=== PATIENT | female | born 2000 | race African-American/Black ===

== ENCOUNTER 2020-07-28 02:30 | Outpatient (CLI) | payer MEDICAID ==
[2020-07-28 02:49] VITALS: BP 117/69
[2020-07-28] MEDS ORDERED: LACTATED RINGERS 1,000 ML IV ONE (03:01)
--- NOTE | 2020-07-28 06:20 | Ultrasound Report ---
Obstetrical ultrasound limited with biophysical profile. HISTORY: Evaluate for abruption. . Pain. Limited obstetrical ultrasound was performed. A single viable intrauterine in the cephalic position has heart tones of 141 bpm. Amniotic fluid index is normal at 10.8 cm. Placenta is anteriorly located and demonstrates no evidence of abruption. Biophysical profile is normal at 8/8. FINDINGS: 1. Normal biophysical profile. 2. No evidence of abruption. Signer Name: Jose Johnson MD Signed: 07/28/2020 6:16 AM Workstation Name: [id number]
== END 2020-07-28 07:40 | disposition home or self-care (01) ==
LOC: TRG 02:30 → APU 02:38 → TRG 07:40
PROVIDERS: ATTEND Obstetrics & Gynecology
DX: O46.8X3 Other antepartum hemorrhage, third trimester (principal); Z3A.34 34 weeks gestation of pregnancy
CPT/HCPCS: 59025; 76815; 76819; 96360; J7120

== ENCOUNTER 2020-08-16 16:38 | Outpatient (CLI) | payer MEDICAID ==
[2020-08-16 17:49] LABS: Hematocrit 29.8 % (30.3-42.9); Hemoglobin 9.8 gm/dl (10.1-14.3); Mean Corpuscular HGB Conc 33 % (30-34); Mean Corpuscular Volume 83 fl (79-97); Platelet Count 228 K/mm3 (140-440); Red Blood Count 3.61 M/mm3 (3.65-5.03)
[2020-08-16 17:54] LABS: Amphetamine Screen,Urine Negative; Benzodiazepines Screen,Urine Negative; Cannabinoid Screen,Urine Negative; Cocaine Screen,Urine Negative; Methadone Screen,Urine Negative; Opiate Screen,Urine Negative
[2020-08-16 17:59] LABS: Bacteria,Urine 1+ /HPF (Negative); Bilirubin,Urine NEG (Negative); Blood,Urine NEG (Negative); Color,Urine Yellow (Yellow); Mucus,Urine FEW /HPF; Protein,Urine <15 mg/dL mg/dL (Negative); RBC,Urine < 1.0 /HPF (0.0-6.0); Urobilinogen,Urine < 2.0 mg/dL (<2.0)
[2020-08-16 18:07] LABS: Alanine Aminotransferase 8 units/L (7-56); Uric Acid 4.6 mg/dL (3.5-7.6)
--- NOTE | 2020-08-16 18:18 | Event Note ---
Date: 08/16/20 (pt presents with c/o edema LE and a home BP 120/100) All BPs normotensive 114/70 She does have 1+ edema LE bilateral Recommended decrease salt, increase water hydration, support socks. Pt has an OB appt Monday with Gia WEIGHT CHECKER in the [facility] office. All questions addressed. Pt encouraged to CB with any concerns.
[2020-08-16 18:21] VITALS: BP 111/74
== END 2020-08-16 18:30 | disposition home or self-care (01) ==
LOC: TRG 16:38 → APU 16:38 → TRG 18:30
PROVIDERS: ATTEND Obstetrics & Gynecology
DX: O47.1 False labor at or after 37 completed weeks of gestation (principal); Z3A.39 39 weeks gestation of pregnancy
CPT/HCPCS: 36415; 59025; 80307; 81001; 82565; 83615; 84450; 84460; 84550; 85027

== ENCOUNTER 2020-08-26 17:41 | Inpatient (IN) | payer MEDICAID ==
[2020-08-26] MEDS ORDERED: LIDOCAINE (2%) 20 MG/1 ML VIAL 20 ML MDV INFILTRATI ONE (19:28)
[2020-08-26] MEDS ORDERED: ONDANSETRON 4 MG/2 ML INJ IV PRN (19:28)
[2020-08-26] MEDS ORDERED: TERBUTALINE 1 MG/1 ML INJ SUB-Q PRN (19:28)
[2020-08-26] MEDS ORDERED: ePHEDrine SULFATE 50 MG/1 ML INJ IV PRN (19:28)
[2020-08-26] MEDS ORDERED: MINERAL OIL 30 ML ORAL LIQD PO PRN (19:28)
[2020-08-26] MEDS ORDERED: ACETAMINOPHEN 325 MG TAB PO PRN (19:28)
--- NOTE | 2020-08-26 19:28 | History and Physical Report ---
History of Present Illness Date of examination: 08/26/20 Date of admission: 08/26/2020 Chief complaint: decreased movement, passed my mucus plug, contractions History of present illness: Pt presents c/o decreased movement and contraction. Sono noted to have BABATUNDE of 4.7. Will admit for IOL due to oligohydraminos. Serial IOL was d/w and all questions were addressed and answered. EDC Calculations LMP: 09/02/2020 EDC Confirmation: 09/02/2020 Gestational Age: 30 2/7 weeks Past History : 1 Term Births: 0 Premature Births: 0 Living Children: 0 Para: 0 Mult. Births: 0 Prev : 0 Aborta: 0 Elect. Ab: 0 Spont. Ab: 0 Ectopics: 0 Past Medical History: Negative Past Medical History Past Surgical History: Negative Past Surgical History Family History Summary: Other Family Member - Has No Family History of Ovarvian Cancer - Entered On: 06/26/2020 Other Family Member - Has No Family History of Breast Cancer - Entered On: 06/26/2020 Other Family Member - Has Family History of Spontaneous DVT-PE - Entered On: 06/26/2020 Other Family Member - Has Family History of Diabetes - Entered On: 06/26/2020 Other Family Member - Has Family History of Coronary Heart Disease - Entered On: 06/26/2020 Social History: Marital Status: Single Children: 0 Occupation: Smoking History: Patient has never smoked. Risk Factors: Smoked Tobacco Use: Former smoker Smokeless Tobacco Use: Never Counseled to quit/cut down: yes Passive smoke exposure: no Drug use: no HIV high-risk behavior: no Caffeine use: 1 drinks per day Alcohol use: no Exercise: yes Times per week: 4 Seatbelt use: 100 % Past Medical History Surgery (Non-clinical physician assistant): Negative Past Surgical History Abnormal PAP: negative Uterine Anomaly: negative Social Hx: Marital Status: Single Children: 0 Occupation: Smoking History: Patient has never smoked. Infection History Hx of STD: gonorrhea HIV Risk Eval: no Partner hx. of genital herpes: no Infection History Comments: chlamydia Genetic History Congenital Heart Defect: Mom: no Dad: no Lorena Disease: Mom: no Dad: no Thalassemia Mom: no Dad: no Neural Tube Defect Mom: no Dad: no Down's Syndrome Mom: no Dad: no Carlos-Sachs Mom: no Dad: no Sickle Cell Disease/Trait Mom: no Dad: no Hemophilia Mom: no Dad: no Muscular Dystrophy Mom: no Dad: no Cystic Fibrosis Mom: no Dad: no Agnes Chorea Mom: no Dad: no Mental Retardation Mom: no Dad: no Fragile X Mom: no Dad: no Other Genetic/Chromosomal Disorder Mom: no Dad: no Child w/other defect Mom: no Dad: no Enviromental Exposures Xray Exposure: no Medication, drug, or alcohol use since LMP: no Exposure to Cat Liter: yes Active Medications: None Current Allergies (reviewed today): No known allergies Past History Past Medical History: other (see hpi) Past Surgical History: other (see hpi) [employer] MANAGER History: other (see hpi) Family/Genetic History: other (see hpi) Social history: other (see hpi) - Obstetrical History Expected Date of Delivery: 09/02/20 Actual Gestation: 39 Week(s) 0 Day(s) : 1 Medications and Allergies Allergies Allergy/AdvReac Type Severity Reaction Status Date / Time No Known Allergies Allergy Verified 08/26/20 18:41 Home Medications Medication Instructions Recorded Confirmed Last Taken Type 147/Iron/Folic Acid 1 mg PO DAILY 08/16/20 08/26/20 08/26/20 History Review of Systems All systems: negative - Vital Signs Vital signs: Vital Signs Pulse BP 74 122/81 08/26/20 18:08 08/26/20 18:08 Temp Pulse Resp BP Pulse Ox 98.2 F 77 18 124/74 98 08/26/20 18:35 08/26/20 19:20 08/26/20 18:35 08/26/20 19:09 08/26/20 19:20 - Physical Exam Cardiovascular: Normal S1, Normal S2 Lungs: Positive: Normal air movement Abdomen: Positive: normal appearance, soft Genitourinary (Female): Positive: other (as per triage nurse exam provider did not re-examine pt) - Obstetrical FHR: category 1 Uterine Contraction Pattern: Irregular Uterine Tone Measurement Phase: Resting Results Result Diagrams: 08/26/20 19:40 All other labs normal. Assessment and Plan - Patient Problems (1) 39 weeks gestation of Current Visit: Yes Status: Acute (2) Oligohydramnios antepartum Current Visit: Yes Status: Acute Qualifiers: Fetus number: single or unspecified fetus Qualified Code(s): O41.00X0 - Oligohydramnios, unspecified trimester, not applicable or unspecified Plan to address problem: -admit for IOL -serial IOL and expectations d/w pt and family member at bedside -all questions were addressed and answered.
--- NOTE | 2020-08-26 19:44 | Ultrasound Report ---
Limited OB Ultrasound Biophysical profile HISTORY: decreased movment. TECHNIQUE: Grayscale and color imaging performed. COMPARISON: Limited OB ultrasound and biophysical profile from 07/28/2020 FINDINGS: There is a single viable intrauterine gestation with cephalic presentation and heart rate o f 139 bpm. BABATUNDE is low measuring 4.7 cm. On biophysical profile, the fetus received a score of 2 out of 2 for breathing, movement, posture/ton e, and qualitative BABATUNDE. Total score was 8 out of 8. IMPRESSION: 1. Single viable intrauterine gestation with low BABATUNDE. 2. Normal biophysical profile. Signer Name: Charles Cisneros MD Signed: 08/26/2020 7:39 PM Workstation Name: [id number]
[2020-08-26] MEDS ORDERED: OXYTOCIN DRIP 30 UNITS/500 ML BAG IV SCH ×2 (20:00)
[2020-08-26 20:12] LABS: Hematocrit 30.8 % (30.3-42.9); Mean Corpuscular HGB Conc 32 % (30-34); Mean Corpuscular Volume 82 fl (79-97); Platelet Count 222 K/mm3 (140-440); Red Blood Count 3.76 M/mm3 (3.65-5.03); Red Cell Distribution Width 15.7 % (13.2-15.2)
[2020-08-26] MEDS ORDERED: DINOPROSTONE 10 MG VAG SUPP VG ONE (21:28)
--- NOTE | 2020-08-27 03:05 | Event Note ---
Date: 08/27/20 Tracing reviewed. Cat 1 pt stable. Cont cervidil for now.
--- NOTE | 2020-08-27 06:39 | Progress Note ---
Assessment and Plan - Patient Problems (1) Oligohydramnios antepartum Onset Date: ~08/26/20 Current Visit: Yes Status: Acute Qualifiers: Fetus number: single or unspecified fetus Qualified Code(s): O41.00X0 - Oligohydramnios, unspecified trimester, not applicable or unspecified Plan to address problem: Pt in good spirits No c/o voiced Cervidil due out @ 1200 AM carre and diet ordered. Pt aware of POC and poss of more than one day for induction Subjective - Subjective Date of service: 08/27/20 (no c/o voiced) Principal diagnosis: IUP@39w1d oligo for IOL Patient reports: movement normal Objective - Vital Signs Vital Signs: Vital Signs - 12hr 08/26/20 08/26/20 08/26/20 18:39 18:40 18:45 Temperature Pulse Rate 68 69 73 Respiratory Rate Blood Pressure 130/86 129/87 Blood Pressure [Left] O2 Sat by Pulse 99 99 Oximetry 08/26/20 08/26/20 08/26/20 18:50 18:55 19:00 Temperature Pulse Rate 81 72 73 Respiratory Rate Blood Pressure Blood Pressure [Left] O2 Sat by Pulse 99 100 99 Oximetry 08/26/20 08/26/20 08/26/20 19:05 19:09 19:10 Temperature Pulse Rate 84 76 74 Respiratory Rate Blood Pressure 124/74 Blood Pressure [Left] O2 Sat by Pulse 98 99 Oximetry 08/26/20 08/26/20 08/26/20 19:15 19:20 19:25 Temperature Pulse Rate 73 77 78 Respiratory Rate Blood Pressure Blood Pressure [Left] O2 Sat by Pulse 99 98 99 Oximetry 08/26/20 08/26/20 08/26/20 19:30 19:35 19:38 Temperature Pulse Rate 71 84 78 Respiratory Rate Blood Pressure 131/93 Blood Pressure [Left] O2 Sat by Pulse 99 99 Oximetry 08/26/20 08/26/20 08/26/20 19:40 19:44 19:45 Temperature Pulse Rate 79 126 H 120 H Respiratory Rate Blood Pressure Blood Pressure [Left] O2 Sat by Pulse 99 92 99 Oximetry 08/26/20 08/26/20 08/26/20 19:50 19:55 20:00 Temperature Pulse Rate 94 H 79 89 Respiratory Rate Blood Pressure Blood Pressure [Left] O2 Sat by Pulse 99 99 99 Oximetry 08/26/20 08/26/20 08/26/20 20:05 20:08 20:45 Temperature 99.0 F Pulse Rate 79 78 83 Respiratory 18 Rate Blood Pressure 125/89 Blood Pressure 127/79 [Left] O2 Sat by Pulse 99 Oximetry 08/26/20 08/26/20 08/26/20 20:47 22:02 23:02 Temperature Pulse Rate 83 90 120 H Respiratory Rate Blood Pressure 127/79 133/87 134/86 Blood Pressure [Left] O2 Sat by Pulse Oximetry 08/27/20 08/27/20 08/27/20 00:03 01:02 02:02 Temperature Pulse Rate 69 76 71 Respiratory Rate Blood Pressure 113/69 124/84 106/55 Blood Pressure [Left] O2 Sat by Pulse Oximetry 08/27/20 08/27/20 08/27/20 03:02 03:12 03:17 Temperature Pulse Rate 71 90 94 H Respiratory Rate Blood Pressure 121/76 Blood Pressure [Left] O2 Sat by Pulse 99 99 Oximetry 08/27/20 08/27/20 08/27/20 03:22 03:27 03:32 Temperature Pulse Rate 84 75 75 Respiratory Rate Blood Pressure Blood Pressure [Left] O2 Sat by Pulse 98 98 98 Oximetry 08/27/20 08/27/20 08/27/20 03:37 03:42 03:47 Temperature Pulse Rate 87 84 83 Respiratory Rate Blood Pressure Blood Pressure [Left] O2 Sat by Pulse 98 98 98 Oximetry 08/27/20 08/27/20 08/27/20 03:52 03:57 04:02 Temperature Pulse Rate 87 83 86 Respiratory Rate Blood Pressure 146/91 Blood Pressure [Left] O2 Sat by Pulse 98 98 99 Oximetry 08/27/20 08/27/20 08/27/20 04:07 04:12 04:17 Temperature Pulse Rate 77 86 103 H Respiratory Rate Blood Pressure Blood Pressure [Left] O2 Sat by Pulse 98 98 97 Oximetry 08/27/20 08/27/20 08/27/20 04:22 04:27 04:32 Temperature Pulse Rate 72 72 71 Respiratory Rate Blood Pressure Blood Pressure [Left] O2 Sat by Pulse 97 98 98 Oximetry 08/27/20 08/27/20 08/27/20 04:37 04:42 04:47 Temperature Pulse Rate 69 72 69 Respiratory Rate Blood Pressure Blood Pressure [Left] O2 Sat by Pulse 98 98 98 Oximetry 08/27/20 08/27/20 08/27/20 04:52 04:57 05:02 Temperature Pulse Rate 69 73 72 Respiratory Rate Blood Pressure 134/82 Blood Pressure [Left] O2 Sat by Pulse 98 98 98 Oximetry 08/27/20 08/27/20 08/27/20 05:07 05:12 05:17 Temperature Pulse Rate 76 79 74 Respiratory Rate Blood Pressure Blood Pressure [Left] O2 Sat by Pulse 98 98 97 Oximetry 08/27/20 08/27/20 08/27/20 05:22 05:27 05:32 Temperature Pulse Rate 74 66 73 Respiratory Rate Blood Pressure Blood Pressure [Left] O2 Sat by Pulse 97 98 97 Oximetry 08/27/20 08/27/20 08/27/20 05:37 05:42 05:47 Temperature Pulse Rate 70 90 74 Respiratory Rate Blood Pressure Blood Pressure [Left] O2 Sat by Pulse 98 98 98 Oximetry 08/27/20 08/27/20 08/27/20 05:52 05:57 06:02 Temperature Pulse Rate 71 74 95 H Respiratory Rate Blood Pressure Blood Pressure [Left] O2 Sat by Pulse 98 98 99 Oximetry 08/27/20 08/27/20 08/27/20 06:04 06:07 06:12 Temperature Pulse Rate 71 69 73 Respiratory Rate Blood Pressure 136/83 Blood Pressure [Left] O2 Sat by Pulse 98 97 Oximetry 08/27/20 08/27/20 08/27/20 06:17 06:22 06:27 Temperature Pulse Rate 73 72 72 Respiratory Rate Blood Pressure Blood Pressure [Left] O2 Sat by Pulse 97 97 97 Oximetry 08/27/20 06:32 Temperature Pulse Rate 73 Respiratory Rate Blood Pressure Blood Pressure [Left] O2 Sat by Pulse 97 Oximetry - Exam Breasts: deferred Cardiovascular: Regular rate Lungs: Normal air movement Abdomen: Present: normal appearance, soft, normal bowel sounds. Absent: distention, tenderness Uterus: Present: normal FHR: auscultation normal, category 1 (minimal variability) Uterine Contraction Monitor Mode: External Uterine Contraction Pattern: Irregular Uterine Tone Measurement Phase: Resting Uterine Contraction Intensity: Mild Extremities: normal Deep Tendon Reflex Grade: Normal +2 - Labs Labs: Abnormal Labs 08/26/20 19:40 WBC 11.7 H Hgb 10.0 L MCH 27 L RDW 15.7 H Laboratory Results - last 24 hr 08/26/20 08/26/20 08/26/20 19:40 19:40 19:40 WBC 11.7 H RBC 3.76 Hgb 10.0 L Hct 30.8 MCV 82 MCH 27 L MCHC 32 RDW 15.7 H Plt Count 222 Syphilis IgG Antibody Nonreactive Blood Type O POSITIVE Antibody Screen Negative
[2020-08-27] MEDS: LACTATED RINGERS 1,000 ML IV SCH ×2 (08:16)
--- NOTE | 2020-08-27 12:10 | Event Note ---
Date: 08/27/20 SVE /1 Cervidil removed patient tolerated well. Patient to eat and shower will start pit afterward 4x4 every 30 min. Anticipate vaginal delivery UMAYCOL Blake
--- NOTE | 2020-08-27 16:35 | Progress Note ---
Assessment and Plan SVE /-1 Pitocin at 4 SROM Clear, Patient desires epidural, bolus going anticipate vaginal delivery - Patient Problems (1) Oligohydramnios antepartum Onset Date: ~08/26/20 Current Visit: Yes Status: Acute Qualifiers: Fetus number: single or unspecified fetus Qualified Code(s): O41.00X0 - Oligohydramnios, unspecified trimester, not applicable or unspecified Subjective - Subjective Date of service: 08/27/20 Principal diagnosis: IUP@39w1d oligo for IOL Patient reports: loss of fluid, movement normal, contractions Objective - Vital Signs Vital Signs: Vital Signs - 12hr 08/27/20 08/27/20 08/27/20 04:32 04:37 04:42 Temperature Pulse Rate 71 69 72 Respiratory Rate Blood Pressure Blood Pressure [Left] O2 Sat by Pulse 98 98 98 Oximetry 08/27/20 08/27/20 08/27/20 04:47 04:52 04:57 Temperature Pulse Rate 69 69 73 Respiratory Rate Blood Pressure Blood Pressure [Left] O2 Sat by Pulse 98 98 98 Oximetry 08/27/20 08/27/20 08/27/20 05:02 05:07 05:12 Temperature Pulse Rate 72 76 79 Respiratory Rate Blood Pressure 134/82 Blood Pressure [Left] O2 Sat by Pulse 98 98 98 Oximetry 08/27/20 08/27/20 08/27/20 05:17 05:22 05:27 Temperature Pulse Rate 74 74 66 Respiratory Rate Blood Pressure Blood Pressure [Left] O2 Sat by Pulse 97 97 98 Oximetry 08/27/20 08/27/20 08/27/20 05:32 05:37 05:42 Temperature Pulse Rate 73 70 90 Respiratory Rate Blood Pressure Blood Pressure [Left] O2 Sat by Pulse 97 98 98 Oximetry 08/27/20 08/27/20 08/27/20 05:47 05:52 05:57 Temperature Pulse Rate 74 71 74 Respiratory Rate Blood Pressure Blood Pressure [Left] O2 Sat by Pulse 98 98 98 Oximetry 08/27/20 08/27/20 08/27/20 06:02 06:04 06:07 Temperature Pulse Rate 95 H 71 69 Respiratory Rate Blood Pressure 136/83 Blood Pressure [Left] O2 Sat by Pulse 99 98 Oximetry 08/27/20 08/27/20 08/27/20 06:12 06:17 06:22 Temperature Pulse Rate 73 73 72 Respiratory Rate Blood Pressure Blood Pressure [Left] O2 Sat by Pulse 97 97 97 Oximetry 08/27/20 08/27/20 08/27/20 06:27 06:32 06:37 Temperature Pulse Rate 72 73 74 Respiratory Rate Blood Pressure Blood Pressure [Left] O2 Sat by Pulse 97 97 97 Oximetry 08/27/20 08/27/20 08/27/20 06:42 06:47 06:52 Temperature Pulse Rate 79 80 73 Respiratory Rate Blood Pressure Blood Pressure [Left] O2 Sat by Pulse 97 98 98 Oximetry 08/27/20 08/27/20 08/27/20 06:57 07:01 07:02 Temperature 97.7 F Pulse Rate 81 86 95 H Respiratory Rate Blood Pressure 132/85 Blood Pressure 132/85 [Left] O2 Sat by Pulse 98 98 Oximetry 08/27/20 08/27/20 08/27/20 07:07 07:12 07:17 Temperature Pulse Rate 91 H 79 84 Respiratory Rate Blood Pressure Blood Pressure [Left] O2 Sat by Pulse 99 99 99 Oximetry 08/27/20 08/27/20 08/27/20 07:22 07:27 07:32 Temperature Pulse Rate 83 80 98 H Respiratory Rate Blood Pressure Blood Pressure [Left] O2 Sat by Pulse 98 99 99 Oximetry 08/27/20 08/27/20 08/27/20 07:37 07:42 07:47 Temperature Pulse Rate 76 66 78 Respiratory Rate Blood Pressure Blood Pressure [Left] O2 Sat by Pulse 99 99 99 Oximetry 08/27/20 08/27/20 08/27/20 07:52 10:36 10:39 Temperature Pulse Rate 75 76 73 Respiratory Rate Blood Pressure 135/93 137/93 Blood Pressure [Left] O2 Sat by Pulse 99 Oximetry 08/27/20 08/27/20 10:40 10:41 Temperature 98.3 F Pulse Rate 73 77 Respiratory 16 Rate Blood Pressure 127/82 Blood Pressure 127/82 [Left] O2 Sat by Pulse Oximetry - Exam Breasts: deferred Cardiovascular: Regular rate Lungs: Normal air movement Abdomen: Present: normal appearance, soft, normal bowel sounds Vulva: both: normal Uterus: Present: normal FHR: category 2 (Minimal Variability at present) Uterine Contraction Monitor Mode: External Cervical Dilatation: 3 Cervical Effacement Percentage: 80 station: -1 Uterine Contraction Frequency (min): 2-3 Uterine Contraction Duration: 60-70 Uterine Contraction Pattern: Regular Uterine Tone Measurement Phase: Resting Uterine Contraction Intensity: Moderate - Labs Labs: Abnormal Labs 08/26/20 19:40 WBC 11.7 H Hgb 10.0 L MCH 27 L RDW 15.7 H Laboratory Results - last 24 hr 08/26/20 08/26/20 08/26/20 19:40 19:40 19:40 WBC 11.7 H RBC 3.76 Hgb 10.0 L Hct 30.8 MCV 82 MCH 27 L MCHC 32 RDW 15.7 H Plt Count 222 Syphilis IgG Antibody Nonreactive Coronavirus (PCR) Blood Type O POSITIVE Antibody Screen Negative 08/27/20 10:46 WBC RBC Hgb Hct MCV MCH MCHC RDW Plt Count Syphilis IgG Antibody Coronavirus (PCR) Negative Blood Type Antibody Screen
[2020-08-27] MEDS ORDERED: fentaNYL 100 MCG/2 ML INJ IV ONE (16:44)
[2020-08-27] MEDS ORDERED: DEXMEDETOMIDINE 200 MCG/2 ML VIAL IV ONE (16:53)
[2020-08-27] MEDS ORDERED: NALOXONE 2 MG/2 ML INJ IV PRN (17:02)
[2020-08-27] MEDS ORDERED: ONDANSETRON 4 MG/2 ML INJ IV PRN (17:02)
[2020-08-27] MEDS ORDERED: NalbUPHINE 10 MG/1 ML INJ IV PRN (17:02)
[2020-08-27] MEDS ORDERED: diphenhydrAMINE 50 MG/ML VIAL IV PRN (17:02)
--- NOTE | 2020-08-27 17:03 | Anesthesia Consultation ---
Anesthesia Consult and Med Hx Date of service: 08/27/20 - Airway Anesthetic Teeth Evaluation: Good ROM Head & Neck: Adequate Mental/Hyoid Distance: Adequate Mallampati Class: Class II Intubation Access Assessment: Good - Pulmonary Exam CTA: Yes - Cardiac Exam Cardiac Exam: RRR - Pre-Operative Health Status ASA Pre-Surgery Classification: ASA2 Proposed Anesthetic Plan: Epidural - Pulmonary Hx Smoking: Yes (former) Hx Asthma: No Hx Sleep Apnea: No - Cardiovascular System Hx Hypertension: No - Central Nervous System Hx Seizures: Yes (last attack 11/2019) Hx Psychiatric Problems: No - Gastrointestinal Hx Gastroesophageal Reflux Disease: No - Endocrine Hx Renal Disease: No Hx Hypothyroidism: No Hx Hyperthyroidism: No - Hematic Hx Anemia: No Hx Sickle Cell Disease: No - Other Systems Hx Alcohol Use: No
--- NOTE | 2020-08-27 17:45 | Progress Note ---
Labor Epidural - Labor Epidural Start Time: 17:20 Stop Time: 17:39 Performed by:: LEMUEL RAIN ([facility]) Procedure: Patient is requesting a laboring epidural for laboring pain. Patient IDed, H&P reviewed, all questions and concerns were answered, and consent was signed. Timeout was performed at bedside. Patient in sitting position. Sterile prep and drape was performed. 3ml of 1% lidocaine skin wheal at L[3]- L [4]. 18-gauge Touhy epidural needle was advanced to loss of resistance with air technique. Negative CSF negative blood. Epidural catheter advanced to [12] centimeters. [-] Aspiration [-] test dose. Sterile dressing applied. Patient tolerated procedure.
[2020-08-27] MEDS ORDERED: fentaNYL-BUPIV 2 MCG/ML-0.125% 200 MCG/100 ML BAG EPIDURAL SCH (18:00)
--- NOTE | 2020-08-27 18:00 | Event Note ---
Date: 08/27/20 (s/p epidural Noted BP 150/100 ) Pt comfortable with epidural BP 150/100 Edema 2+ in LE SCD applied. PIH labs ordered. Will start MGSO4 Dr Marie notified.
[2020-08-27] MEDS ORDERED: MAGNESIUM SULFATE 4 GM/100 ML BAG IV ONE ×2 (18:01→18:07)
[2020-08-27] MEDS ORDERED: MAGNESIUM SULFATE 40GM/1000ML 40 GM/1,000 ML BAG IV ONE (18:07)
--- NOTE | 2020-08-27 18:20 | Progress Note ---
Assessment and Plan Patient resting comfortably after epidural placement. SVE /-1 soft and midline vtx, IUPC and FSE placed patient tolerated well. patient resting no complaints or concerns at present. MGso4 bolus started Vicki Manley-MAYCOL Shah - Patient Problems (1) Oligohydramnios antepartum Onset Date: ~08/26/20 Current Visit: Yes Status: Acute Qualifiers: Fetus number: single or unspecified fetus Qualified Code(s): O41.00X0 - Oligohydramnios, unspecified trimester, not applicable or unspecified Subjective - Subjective Date of service: 08/27/20 Principal diagnosis: IUP@39w1d oligo for IOL Patient reports: loss of fluid, movement normal, contractions Objective - Vital Signs Vital Signs: Vital Signs - 12hr 08/27/20 08/27/20 08/27/20 06:17 06:22 06:27 Temperature Pulse Rate 73 72 72 Respiratory Rate Blood Pressure Blood Pressure [Left] O2 Sat by Pulse 97 97 97 Oximetry 08/27/20 08/27/20 08/27/20 06:32 06:37 06:42 Temperature Pulse Rate 73 74 79 Respiratory Rate Blood Pressure Blood Pressure [Left] O2 Sat by Pulse 97 97 97 Oximetry 08/27/20 08/27/20 08/27/20 06:47 06:52 06:57 Temperature Pulse Rate 80 73 81 Respiratory Rate Blood Pressure Blood Pressure [Left] O2 Sat by Pulse 98 98 98 Oximetry 08/27/20 08/27/20 08/27/20 07:01 07:02 07:07 Temperature 97.7 F Pulse Rate 86 95 H 91 H Respiratory Rate Blood Pressure 132/85 Blood Pressure 132/85 [Left] O2 Sat by Pulse 98 99 Oximetry 08/27/20 08/27/20 08/27/20 07:12 07:17 07:22 Temperature Pulse Rate 79 84 83 Respiratory Rate Blood Pressure Blood Pressure [Left] O2 Sat by Pulse 99 99 98 Oximetry 08/27/20 08/27/20 08/27/20 07:27 07:32 07:37 Temperature Pulse Rate 80 98 H 76 Respiratory Rate Blood Pressure Blood Pressure [Left] O2 Sat by Pulse 99 99 99 Oximetry 08/27/20 08/27/20 08/27/20 07:42 07:47 07:52 Temperature Pulse Rate 66 78 75 Respiratory Rate Blood Pressure Blood Pressure [Left] O2 Sat by Pulse 99 99 99 Oximetry 08/27/20 08/27/20 08/27/20 10:36 10:39 10:40 Temperature 98.3 F Pulse Rate 76 73 73 Respiratory 16 Rate Blood Pressure 135/93 137/93 Blood Pressure 127/82 [Left] O2 Sat by Pulse Oximetry 08/27/20 08/27/20 08/27/20 10:41 16:33 16:38 Temperature Pulse Rate 77 99 H 86 Respiratory Rate Blood Pressure 127/82 Blood Pressure [Left] O2 Sat by Pulse 98 98 Oximetry 08/27/20 08/27/20 08/27/20 16:43 16:48 16:53 Temperature Pulse Rate 86 81 85 Respiratory Rate Blood Pressure Blood Pressure [Left] O2 Sat by Pulse 98 98 98 Oximetry 08/27/20 08/27/20 08/27/20 16:58 17:03 17:08 Temperature Pulse Rate 85 91 H 88 Respiratory Rate Blood Pressure Blood Pressure [Left] O2 Sat by Pulse 98 98 98 Oximetry 08/27/20 08/27/20 08/27/20 17:13 17:18 17:23 Temperature Pulse Rate 94 H 102 H 101 H Respiratory Rate Blood Pressure Blood Pressure [Left] O2 Sat by Pulse 97 98 99 Oximetry 08/27/20 08/27/20 08/27/20 17:28 17:30 17:32 Temperature Pulse Rate 103 H 96 H 100 H Respiratory Rate Blood Pressure 156/94 152/91 Blood Pressure [Left] O2 Sat by Pulse 99 Oximetry 08/27/20 08/27/20 08/27/20 17:33 17:35 17:37 Temperature Pulse Rate 95 H 95 H 112 H Respiratory Rate Blood Pressure 151/91 153/94 Blood Pressure [Left] O2 Sat by Pulse 99 Oximetry 08/27/20 08/27/20 08/27/20 17:38 17:41 17:43 Temperature Pulse Rate 99 H 101 H 93 H Respiratory Rate Blood Pressure 146/92 142/91 Blood Pressure [Left] O2 Sat by Pulse 99 99 Oximetry 08/27/20 08/27/20 08/27/20 17:45 17:48 17:50 Temperature Pulse Rate 97 H 94 H 82 Respiratory Rate Blood Pressure 157/110 153/102 146/89 Blood Pressure [Left] O2 Sat by Pulse 99 Oximetry 08/27/20 08/27/20 08/27/20 17:53 17:56 17:58 Temperature Pulse Rate 92 H 83 82 Respiratory Rate Blood Pressure 146/91 143/88 Blood Pressure [Left] O2 Sat by Pulse 98 98 Oximetry 08/27/20 08/27/20 08/27/20 17:59 18:02 18:03 Temperature Pulse Rate 82 86 83 Respiratory Rate Blood Pressure 141/87 142/87 Blood Pressure [Left] O2 Sat by Pulse 99 Oximetry 08/27/20 08/27/20 08/27/20 18:05 18:08 18:11 Temperature Pulse Rate 76 76 80 Respiratory Rate Blood Pressure 141/86 150/87 147/92 Blood Pressure [Left] O2 Sat by Pulse 97 Oximetry - Exam Breasts: deferred Cardiovascular: Regular rate Lungs: Normal air movement Abdomen: Present: normal appearance, soft Vulva: both: normal Uterus: Present: normal FHR: category 2 (minimal variability at present) Uterine Contraction Monitor Mode: Internal (IUPC in placed) Cervical Dilatation: 6 Cervical Effacement Percentage: 90 station: -1 Uterine Contraction Pattern: Regular Uterine Tone Measurement Phase: Resting Uterine Contraction Intensity: Moderate Extremities: edema (pitting) - Labs Labs: Abnormal Labs 08/26/20 19:40 WBC 11.7 H Hgb 10.0 L MCH 27 L RDW 15.7 H Laboratory Results - last 24 hr 08/26/20 08/26/20 08/26/20 19:40 19:40 19:40 WBC 11.7 H RBC 3.76 Hgb 10.0 L Hct 30.8 MCV 82 MCH 27 L MCHC 32 RDW 15.7 H Plt Count 222 Syphilis IgG Antibody Nonreactive Coronavirus (PCR) Blood Type O POSITIVE Antibody Screen Negative 08/27/20 10:46 WBC RBC Hgb Hct MCV MCH MCHC RDW Plt Count Syphilis IgG Antibody Coronavirus (PCR) Negative Blood Type Antibody Screen
[2020-08-27 18:48] LABS: Hemoglobin 9.1 gm/dl (10.1-14.3); Mean Corpuscular HGB Conc 32 % (30-34); Mean Corpuscular Volume 82 fl (79-97); Platelet Count 214 K/mm3 (140-440); Red Blood Count 3.53 M/mm3 (3.65-5.03); Red Cell Distribution Width 15.4 % (13.2-15.2)
[2020-08-27 18:54] LABS: Bacteria,Urine 1+ /HPF (Negative); Bilirubin,Urine NEG (Negative); Blood,Urine NEG (Negative); Color,Urine Straw (Yellow); Urobilinogen,Urine < 2.0 mg/dL (<2.0)
[2020-08-27] MEDS ORDERED: MAGNESIUM SULFATE 40GM/1000ML 40 GM/1,000 ML BAG IV SCH (19:00)
[2020-08-27] MEDS ORDERED: LACTATED RINGERS 1,000 ML IV SCH (19:00)
[2020-08-27 19:07] LABS: Alanine Aminotransferase 7 units/L (7-56); Uric Acid 4.8 mg/dL (3.5-7.6)
[2020-08-27] MEDS ORDERED: WITCH HAZEL/ GLYCERIN PAD TP PRN (19:11)
[2020-08-27] MEDS ORDERED: PROMETHAZINE 25 MG TAB PO PRN (19:11)
[2020-08-27] MEDS ORDERED: LANOLIN/ZINC/DIMETHICONE (LANSINOH) 7 GM TP PRN (19:11)
[2020-08-27] MEDS ORDERED: PROMETHAZINE 25 MG RECT SUPP PR PRN (19:11)
[2020-08-27] MEDS ORDERED: MAGNESIUM HYDROXIDE (MOM) ORAL LIQD UDC PO PRN (19:11)
[2020-08-27] MEDS ORDERED: diphenhydrAMINE 25 MG CAP PO PRN (19:11)
--- NOTE | 2020-08-27 19:23 | Procedure Note ---
OB Delivery Note - Delivery Date of Delivery: 08/27/20 [place] Crew Leader: SOPHIA STAHL (MAYCOL Bray) Estimated blood loss: 300cc - Vaginal Delivery position: OA Intrapartum events: preeclampsia Delivery augmentation: pitocin Delivery monitor: internal FHT, internal uterine Route of delivery: Delivery placenta: spontaneous Delivery cord: 3 umbilical vessels Episiotomy: none Delivery laceration: 1st degree (no repair Hemostatic) Anesthesia: epidural Delivery comments: of live female 7lbs 8.2 oz and Apgars 8/9. Delivered OA,over a first degree laceration no nuchal cord, Terminal mec. Mouth bulb suction on mom's abdomen. Body delivered without difficulty. Cord clamp and cut. Cord blood obtained Baby [id number]. Placenta delivered spontaneously and intact.Pitocin IVFs Fundus firm, minimal bleeding. Placenta appears intact with 3 vessel cord. Perineum and vagina inspected first degree laceration without repair hemostatic. EBL 300cc. Patient tolerated well, mom and baby stable and recovering in LDR. MAYCOL Bray - A at 1 minute: 8 at 5 minutes: 9 Gender: Female (7lbs 8.2 oz [place])
[2020-08-27] MEDS: IBUPROFEN 600 MG TAB PO SCH (19:31)
[2020-08-27 22:35] LABS: Hematocrit 23.2 % (30.3-42.9); Hemoglobin 7.6 gm/dl (10.1-14.3)
[2020-08-27] MEDS ORDERED: CARBOPROST TROMETHAMINE 250 MCG/1 ML INJ IM ONE ×3 (22:49→22:50)
[2020-08-27] MEDS ORDERED: DIPHENOXYLATE/ATROPINE TAB PO PRN (22:49)
[2020-08-28] MEDS: IBUPROFEN 600 MG TAB PO SCH ×4 (02:32→23:11)
[2020-08-28] MEDS ORDERED: DIPHtheria,PERTUSSIS(ACELL),TETANUS VACCINE/PF 0.5 ML VIAL IM ONE (06:00)
[2020-08-28 06:03] LABS: Hematocrit 22.7 % (30.3-42.9); Hemoglobin 7.2 gm/dl (10.1-14.3); Mean Corpuscular HGB Conc 32 % (30-34); Mean Corpuscular Volume 82 fl (79-97); Platelet Count 191 K/mm3 (140-440); Red Blood Count 2.78 M/mm3 (3.65-5.03); Red Cell Distribution Width 15.5 % (13.2-15.2)
[2020-08-28] MEDS: LACTATED RINGERS 1,000 ML IV SCH (06:09)
--- NOTE | 2020-08-28 07:54 | Post Anesthesia Evaluation ---
- Post Anesthesia Evaluation Patient Participated: Yes Airway Patent: Yes Stable Respiratory Function: Yes Nausea/Vomiting: No Temp > 96.8F: Yes Pain Manageable: Yes Adequeate Hydration: Yes Anesthesia Complications: No Block Receding Appropriately: Yes Patient on Ventilator: No
--- NOTE | 2020-08-28 08:21 | Progress Note ---
Assessment and Plan A; 20 y.o. s/p @ term, on mag d/t Pre E. Continue mag infusion. Due to be turned off @ 1914. Continue to monitor blood pressures. Subjective - Subjective Date of service: 08/28/20 (Pt doing well) Principal diagnosis: s/s @ term, on mag d/t pre e Patient reports: pain well controlled, flatus : doing well Objective - Vital Signs Latest vital signs: Vital Signs Temp Pulse Resp BP BP Pulse Ox 08/28/20 08:12 100 H 99 08/28/20 08:07 103 H 99 08/28/20 08:02 97 H 99 08/28/20 07:57 96 H 99 08/28/20 07:53 86 125/83 08/28/20 07:52 88 99 08/28/20 07:47 91 H 99 08/28/20 07:42 92 H 99 08/28/20 07:37 87 99 08/28/20 07:32 96 H 100 08/28/20 07:27 94 H 100 08/28/20 07:22 96 H 100 08/28/20 07:17 92 H 100 08/28/20 07:12 89 100 08/28/20 07:07 97 H 100 08/28/20 07:02 86 100 08/28/20 06:57 83 100 08/28/20 06:53 81 118/77 08/28/20 06:52 85 99 08/28/20 06:47 84 99 08/28/20 06:42 81 100 08/28/20 06:37 85 99 08/28/20 06:32 113 H 100 08/28/20 06:27 95 H 100 08/28/20 06:22 83 99 08/28/20 06:17 79 99 08/28/20 06:12 88 100 08/28/20 06:07 94 H 100 08/28/20 06:02 79 99 08/28/20 05:57 81 99 08/28/20 05:53 80 117/73 08/28/20 05:52 81 99 08/28/20 05:47 86 99 08/28/20 05:45 89 0 L 08/28/20 05:42 97 H 99 08/28/20 05:37 98 H 100 08/28/20 05:32 86 99 08/28/20 05:27 89 99 08/28/20 05:22 91 H 100 08/28/20 05:17 86 100 08/28/20 05:12 88 100 08/28/20 05:07 85 100 08/28/20 05:02 83 100 08/28/20 04:57 89 100 08/28/20 04:54 93 H 130/63 08/28/20 04:52 84 100 08/28/20 04:47 91 H 100 08/28/20 04:42 87 100 08/28/20 04:37 101 H 99 08/28/20 04:32 96 H 99 08/28/20 04:27 101 H 99 08/28/20 04:22 122 H 99 08/28/20 04:17 81 99 08/28/20 04:12 80 99 08/28/20 04:07 80 99 08/28/20 04:02 81 99 08/28/20 03:57 84 99 08/28/20 03:53 81 129/79 08/28/20 03:52 82 99 08/28/20 03:47 81 99 08/28/20 03:42 78 99 08/28/20 03:37 80 99 08/28/20 03:32 84 99 08/28/20 03:27 82 99 08/28/20 03:22 83 99 08/28/20 03:17 85 99 08/28/20 03:12 80 99 08/28/20 03:07 82 98 08/28/20 03:02 81 99 08/28/20 02:57 79 99 08/28/20 02:53 79 122/87 08/28/20 02:52 75 99 08/28/20 02:47 85 99 08/28/20 02:42 91 H 99 08/28/20 02:37 108 H 99 08/28/20 02:32 104 H 98 08/28/20 02:27 86 99 08/28/20 02:22 92 H 99 08/28/20 02:17 99 H 98 08/28/20 02:12 89 99 08/28/20 02:07 89 99 08/28/20 02:02 90 99 08/28/20 02:00 98.4 F 08/28/20 01:57 86 99 08/28/20 01:53 84 138/91 20 01:52 85 99 16 01:47 90 98 08/28/20 01:42 84 99 08/28/20 01:37 87 99 08/28/20 01:32 83 99 08/28/20 01:27 85 99 08/28/20 01:22 88 99 08/28/20 01:17 89 99 08/28/20 01:12 96 H 100 08/28/20 01:07 95 H 99 08/28/20 01:02 95 H 98 08/28/20 00:57 97 H 98 08/28/20 00:53 112 H 141/95 08/28/20 00:52 106 H 99 08/28/20 00:47 143 H 98 08/28/20 00:42 100 H 98 08/28/20 00:38 120 H 94 08/28/20 00:37 116 H 96 08/28/20 00:14 112 H 98 08/28/20 00:09 109 H 98 08/28/20 00:04 112 H 98 20 23:59 106 H 98 1520 23:54 107 H 98 20 23:53 100 H 140/93 15/20 23:49 104 H 98 15/20 23:44 105 H 98 1520 23:39 103 H 98 15/20 23:34 102 H 98 15/20 23:29 103 H 98 15/20 23:24 96 H 99 15/20 23:19 98 H 99 15/20 23:14 102 H 99 1520 23:09 95 H 99 1015/20 23:04 101 H 100 1015/20 22:59 92 H 100 1015/20 22:54 94 H 100 1015/20 22:53 93 H 114/68 1015/20 22:48 102 H 99 15/20 22:43 84 100 10/15/20 22:38 91 H 99 10/15/20 22:33 86 100 1015/20 22:28 72 100 10/15/20 22:23 95 H 100 10/15/20 22:18 83 99 1015/20 22:13 84 99 /15/20 22:08 83 100 10/15/20 22:07 78 91 10/15/20 22:03 84 99 10/15/20 21:59 75 92 10/15/20 21:58 84 100 10/15/20 21:53 77 124/84 97 10/15/20 21:48 118 H 99 10/15/20 21:43 85 99 10/15/20 21:38 75 98 10/15/20 21:33 82 98 10/15/20 21:28 81 98 10/15/20 21:23 82 99 10/15/20 21:18 91 H 100 10/15/20 21:13 94 H 100 10/15/20 21:08 89 100 10/15/20 21:03 85 98 10/15/20 20:58 93 H 98 10/15/20 20:53 87 99 10/15/20 20:50 83 132/77 10/15/20 20:48 88 99 10/15/20 20:43 85 98 10/15/20 20:38 96 H 99 10/15/20 20:35 90 132/63 10/15/20 20:33 94 H 99 10/15/20 20:28 90 98 10/15/20 20:23 103 H 98 10/15/20 20:20 93 H 139/67 10/15/20 20:18 86 98 10/15/20 20:13 82 98 10/15/20 20:09 85 137/66 10/15/20 20:08 94 H 99 10/15/20 20:06 68 195/131 92 10/15/20 20:03 89 98 10/15/20 19:58 90 98 10/15/20 19:53 89 99 10/15/20 19:48 95 H 99 10/15/20 19:43 95 H 99 10/15/20 19:38 93 H 99 10/15/20 19:36 96 H 151/77 10/15/20 19:33 106 H 99 10/15/20 19:28 97 H 98 10/15/20 19:23 99 H 99 10/15/20 19:18 96 H 99 10/15/20 19:16 98 H 121/58 10/15/20 19:13 103 H 98 10/15/20 19:08 104 H 98 10/15/20 19:03 94 H 98 10/15/20 19:02 97 H 130/67 08/27/20 18:58 112 H 98 1520 18:56 193 H 165/92 1520 18:53 141 H 98 1520 18:48 63 95 15/20 18:47 89 163/109 1520 18:43 109 H 99 20 18:38 85 99 15/20 18:33 87 99 1520 18:30 98.3 F 08/27/20 18:29 93 H 153/101 20 18:28 83 98 08/27/20 18:23 86 98 20 18:20 73 139/76 08/27/20 18:18 80 98 08/27/20 18:17 78 144/79 08/27/20 18:16 77 144/88 08/27/20 18:14 86 155/92 08/27/20 18:13 78 98 08/27/20 18:11 80 147/92 08/27/20 18:08 76 150/87 97 20 18:05 76 141/86 08/27/20 18:03 83 99 08/27/20 18:02 86 142/87 08/27/20 17:59 82 141/87 20 17:58 82 98 08/27/20 17:56 83 143/88 20 17:53 92 H 146/91 98 08/27/ 17:50 82 146/89 08/27/20 17:48 94 H 153/102 99 15/20 17:45 97 H 157/110 08/27/20 17:43 93 H 99 15/20 17:41 101 H 142/91 15/20 17:38 99 H 146/92 99 15/20 17:37 112 H 153/94 15/20 17:35 95 H 151/91 15/20 17:33 95 H 99 15/20 17:32 100 H 152/91 15/20 17:30 96 H 156/94 15/20 17:28 103 H 99 15/20 17:23 101 H 99 15/20 17:18 102 H 98 15/20 17:13 94 H 97 10/15/20 17:08 88 98 08/27/20 17:03 91 H 98 08/27/20 16:58 85 98 08/27/20 16:53 85 98 08/27/20 16:48 81 98 08/27/20 16:43 86 98 08/27/20 16:38 86 98 08/27/20 16:33 99 H 98 08/27/20 10:41 77 127/82 08/27/20 10:40 98.3 F 73 16 127/82 08/27/20 10:39 73 137/93 08/27/20 10:36 76 135/93 Intake and Output 08/27/20 08/28/20 08/28/20 22:59 06:59 14:59 Intake Total 1000 Output Total 450 451 Balance 550 -451 Intake: IV 1000 Lactated Ringers 1,000 ml 1000 @ 125 mls/hr IV DIRECT ADAN Rx#:[id number] Output: Urine 450 451 Indwelling Catheter 450 451 Other: Total, Output Amount 50 75 - Exam Breasts: Present: deferred Cardiovascular: Present: Regular rate Lungs: Present: Normal air movement Abdomen: Present: normal appearance, soft Vulva: both: normal Uterus: Present: normal, firm Extremities: Present: normal Deep Tendon Reflex Grade: Normal +2 Comments: Pt denies TILLEY. blurred vision, spots before her eye, chest pain, shortness of breath, and upper abdominal pain. - Labs Labs: Abnormal lab results 08/27/20 08/27/20 08/27/20 Range/Units 22:10 Unknown Unknown WBC 13.3 H (4.5-11.0) K/mm3 RBC 3.53 L (3.65-5.03) M/mm3 Hgb 7.6 L 9.1 L (10.1-14.3) gm/dl Hct 23.2 L 29.0 L (30.3-42.9) % MCH 26 L (28-32) pg RDW 15.4 H (13.2-15.2) % Magnesium (1.7-2.3) mg/dL Lactate Dehydrogenase 221 H (91-180) units/L 08/28/20 08/28/20 08/28/20 Range/Units 00:38 05:42 05:42 WBC 21.9 H (4.5-11.0) K/mm3 RBC 2.78 L (3.65-5.03) M/mm3 Hgb 7.2 L (10.1-14.3) gm/dl Hct 22.7 L (30.3-42.9) % MCH 26 L (28-32) pg RDW 15.5 H (13.2-15.2) % Magnesium 3.80 H 4.30 H (1.7-2.3) mg/dL Lactate Dehydrogenase (91-180) units/L
[2020-08-28] MEDS: PRENATAL VIT27-FE FUMARATE-FOLIC ACID VIT TAB PO SCH (11:13)
[2020-08-28] MEDS: FERROUS SULFATE 325 MG TAB PO SCH ×2 (11:13→23:11)
[2020-08-28] MEDS ORDERED: MEASLES, MUMPS & RUBELLA 12,500 UNIT/0.5 ML VACCINE SUB-Q ONE (19:12)
[2020-08-28] MEDS: NEOMY 3.5 MG/BACIT 400 UNITS/POLY B 5000 UNITS OINT 15 GM TP SCH (20:06)
[2020-08-28] MEDS ORDERED: ACETAMINOPHEN 500 MG TAB PO PRN (23:22)
[2020-08-29] MEDS ORDERED: IBUPROFEN 800 MG TAB PO SCH
[2020-08-29] MEDS: NEOMY 3.5 MG/BACIT 400 UNITS/POLY B 5000 UNITS OINT 15 GM TP SCH (08:30)
--- NOTE | 2020-08-29 10:46 | Discharge Summary ---
Providers - Providers Date of Admission: 08/26/20 19:28 Date of discharge: 08/29/20 (pt desires discharge ) Attending physician: KATHY SEARS Primary care physician: KATHY SEARS Hospitalization Reason for admission: Labor Condition: Good Pertinent studies: post delivery H/H 7.2/22.7, asymptomatic anemia s/p acute blood loss Procedures: Hospital course: & PP course complicated by elevated BPs Disposition: - TO HOME OR SELFCARE - Discharge Diagnoses (1) Pre-eclampsia Status: Acute (2) Spontaneous vaginal delivery Status: Acute Core Measure Documentation - Palliative Care Palliative Care/ Comfort Measures: Not Applicable - Core Measures Any of the following diagnoses?: none Exam - Constitutional Vitals: Temp Pulse Resp BP Pulse Ox 98.1 F 91 H 18 118/81 98 08/29/20 07:36 08/29/20 07:36 08/29/20 07:36 08/29/20 07:36 08/29/20 07:36 General appearance: Present: no acute distress, well-nourished - EENT Eyes: Present: PERRL ENT: hearing intact, clear oral mucosa - Neck Neck: Present: supple, normal ROM - Respiratory Respiratory effort: normal Respiratory: bilateral: CTA - Cardiovascular Rhythm: regular Heart Sounds: Present: S1 & S2. Absent: rub, click - Extremities Extremities: pulses intact, pulses symmetrical, No edema (DTR's 2+), normal temperature, normal color, Full ROM Peripheral Pulses: within normal limits - Abdominal General gastrointestinal: Present: soft, non-tender, non-distended, normal bowel sounds Female genitourinary: Present: normal - Integumentary Integumentary: Present: clear, warm, dry - Musculoskeletal Musculoskeletal: gait normal, strength equal bilaterally - Psychiatric Psychiatric: appropriate mood/affect, intact judgment & insight - Neurologic Neurologic: CNII-XII intact, moves all extremities - Additional findings Additional findings: fundus firm, scant lochia, no SS Pre-E, , desires Depo and discharge home today Plan Activity: no restrictions Diet: regular Follow up with: KATHY SEARS MD [Primary Care Provider] - 7 Days (Congratulations! Please call [phone] to schedule an appointment for blood pressure check. Call for any headaches, vision changes, or upper abdominal pain.) Prescriptions: Ferrous Sulfate [Feosol 325 MG tab] 325 mg PO BID #60 tablet Ibuprofen [Motrin 800 MG tab] 800 mg PO Q8HR PRN #30 tablet PRN Reason: Pain
[2020-08-29] MEDS ORDERED: medroxyPROGESTERone ACETATE 150 MG/ML SYRINGE IM ONE (10:48)
[2020-08-29] MEDS: PRENATAL VIT27-FE FUMARATE-FOLIC ACID VIT TAB PO SCH (12:32)
[2020-08-29] MEDS: FERROUS SULFATE 325 MG TAB PO SCH (12:32)
[2020-08-29 13:56] VITALS: BP 120/87
== END 2020-08-29 14:09 | disposition home or self-care (01) | DRG 775 ==
LOC: TRG 17:41 → APU 17:42 → LD 19:28 → OBSVTOIN 19:28 → TRG 19:28 → OB 08-28 20:57
PROVIDERS: ADMIT Obstetrics & Gynecology; ATTEND Obstetrics & Gynecology
PROC: 10E0XZZ Delivery of Products of Conception, External Approach (ICD-10-PCS; principal; 2020-08-27)
PROC: 3E0P7VZ Introduction of Hormone into Female Reproductive, Via Natural or Artificial Opening (ICD-10-PCS; 2020-08-27)
PROC: 3E0R3BZ Introduction of Anesthetic Agent into Spinal Canal, Percutaneous Approach (ICD-10-PCS; 2020-08-27)
PROC: 00HU33Z Insertion of Infusion Device into Spinal Canal, Percutaneous Approach (ICD-10-PCS; 2020-08-27)
PROC: 10H07YZ Insertion of Other Device into Products of Conception, Via Natural or Artificial Opening (ICD-10-PCS; 2020-08-27)
PROC: 3E0234Z Introduction of Serum, Toxoid and Vaccine into Muscle, Percutaneous Approach (ICD-10-PCS; 2020-08-28)
DX: O14.94 Unspecified pre-eclampsia, complicating childbirth (principal); O41.03X0 Oligohydramnios, third trimester, not applicable or unspecified; Z3A.39 39 weeks gestation of pregnancy; Z37.0 Single live birth; Z23 Encounter for immunization; O42.92 Full-term premature rupture of membranes, unspecified as to length of time between rupture and onset of labor; Z87.891 Personal history of nicotine dependence; O70.0 First degree perineal laceration during delivery; O90.81 Anemia of the puerperium; D62 Acute posthemorrhagic anemia; Z20.828 Contact with and (suspected) exposure to other viral communicable diseases
CPT/HCPCS: 36415; 59200; 76815; 76819; 81001; 82565; 83615; 83735; 84450; 84460; 84550; 85014; 85018; 85027; 86592; 86850; 86900; 86901; 88307; G0378; A6250; J1050; J2405; J2590; J3010; J3475; J7120; U0003-CS